=== PATIENT | male | born 1935 | race Caucasian/White ===

== ENCOUNTER 2017-04-14 18:55 | Emergency (ER) | payer MEDICARE ==
[~2017-04-14] VITALS: Ht 172.7 cm; Wt 65.0 kg
[2017-04-14 19:03] VITALS: BP 155/84
== END 2017-04-14 21:29 | disposition home or self-care (01) ==
LOC: ED 21:22
DX: K59.00 Constipation, unspecified (principal); I10 Essential (primary) hypertension; E11.9 Type 2 diabetes mellitus without complications; Z87.891 Personal history of nicotine dependence
CPT/HCPCS: 99284

== ENCOUNTER → 2018-03-14 | Outpatient (CLI) | payer MEDICARE ==
[~2018-03-14] MED LIST: GADOBUTROL 7.5 MMOL/7.5 ML PFS ONE
== END | disposition home or self-care (01) ==
LOC: CFH 08:56
PROVIDERS: ATTEND Family Medicine
DX: G93.5 Compression of brain (principal); R41.3 Other amnesia
CPT/HCPCS: 70553; A9585